=== PATIENT | male | born 1990 | race Caucasian/White ===

== ENCOUNTER 2020-09-12 08:16 | Emergency (ER) | payer OTHER ==
[~2020-09-12] VITALS: Ht 165.1 cm; Wt 68.0 kg
[2020-09-12 10:02] VITALS: BP 124/85
== END 2020-09-12 10:25 | disposition home or self-care (01) ==
LOC: M.ERS 08:16
DX: I83.92 Asymptomatic varicose veins of left lower extremity (principal); F17.210 Nicotine dependence, cigarettes, uncomplicated